=== PATIENT | male | born 1980 | race Caucasian/White ===

== ENCOUNTER 2017-12-31 18:48 | Emergency (ER) | END 2017-12-31 20:40 | disposition home or self-care (01) ==

== ENCOUNTER 2018-12-17 02:18 | Emergency (ER) | payer SELFPAY ==
[~2018-12-17] VITALS: Ht 172.7 cm; Wt 75.0 kg
[~2018-12-17 02:18] MED LIST: CIPR500T4 PO; HYDR-3498 PO; HYDR-3980 PO; HYDR-4011 PO; IBUP800T48 PO; IMIQ1CRE14 TOP; MELO7.5T38 PO; ONDA4TAB14 PO; ONDA4TAB8 PO; TAMS-14 PO
[2018-12-17 02:20] VITALS: Ht 172.7 cm; Wt 75.0 kg
[2018-12-17] MEDS ORDERED: HYDROmorphONE 0.5 MG/0.5 ML SYG IM STA (03:53)
[2018-12-17] MEDS ORDERED: KETOROLAC 30 MG INJ IM STA (03:53)
[2018-12-17] MEDS ORDERED: FUROSEMIDE 20 MG TAB PO ONE (04:00)
[2018-12-17] MEDS ORDERED: TAMSULOSIN (SR) 0.4 MG CAP PO ONE (04:30)
[2018-12-17 05:53] VITALS: BP 126/89; PULSE 62; RESP 16
== END 2018-12-17 05:54 | disposition home or self-care (01) ==
LOC: FTE 02:18
DX: R10.9 Unspecified abdominal pain (principal)
CPT/HCPCS: 80053; 81001; 85025; 96372; 99284; J1170; J1885

== ENCOUNTER 2018-12-18 20:59 | Emergency (ER) | payer SELFPAY ==
[~2018-12-18] VITALS: Ht 167.6 cm; Wt 78.2 kg
[2018-12-18 21:17] VITALS: Ht 167.6 cm; Wt 78.2 kg
[2018-12-18] MEDS ORDERED: KETOROLAC 30 MG INJ IM STA (23:05)
[2018-12-18] MEDS ORDERED: CEFTRIAXONE 250 MG INJ IM ONE (23:30)
[2018-12-18] MEDS ORDERED: AZITHROMYCIN 500 MG TAB PO ONE (23:30)
[2018-12-19] MEDS ORDERED: ONDANSETRON (ODT) 4 MG TAB ODT STA (00:56)
[2018-12-19 01:15] VITALS: BP 137/91; PULSE 82; RESP 18
== END 2018-12-19 01:16 | disposition home or self-care (01) ==
LOC: FTE 20:59
DX: N13.30 Unspecified hydronephrosis (principal); B97.7 Papillomavirus as the cause of diseases classified elsewhere; R10.9 Unspecified abdominal pain
CPT/HCPCS: 74176; 80048; 81003; 85025; 85610; 85730; 87591; J0696; J1885; 36415; 96372